=== PATIENT | female | born 1955 | race Caucasian/White ===

== ENCOUNTER 2023-08-29 14:18 | Emergency (ER) | payer MEDICARE, SELFPAY ==
[2023-08-29] VITALS (11 sets, daily range): BP systolic 111–182; BP diastolic 74–110; PULSE 69–95; RESP 16–18; TEMP 36.4; O2SAT 92–97; BMI 23.5
--- NOTE | 2023-08-29 14:21 | ED.GENADULT ---
HPI - General Adult General Time Seen by Provider: 14:21 Date Seen: 08/29/23 Chief complaint: Back Injury/Pain Stated complaint: Back pain Time Seen by Provider: 08/29/23 14:20 Source: patient, family, RN notes reviewed and old records reviewed Mode of arrival: EMS Limitations: no limitations History of Present Illness HPI narrative: 67-year-old female who presents today with back pain. Patient reports history of chronic back pain and spinal stenosis, worse in the last 3 days. No known injury, pain is in low back bilaterally but worse on the right, worse with movement. No radiation into the upper back or chest. Sometimes the pain is bad enough that she gets nauseated. She has some urinary frequency but difficulty voiding, no hematuria, no bowel or bladder incontinence. Related Data Home Medications Medication Instructions Recorded Confirmed [id number]-vezragwulddtr-gputmipi 1 cap PO DAILY PRN 08/29/23 08/29/23 50 mg-300 mg-40 mg capsule (Fioricet) fluoxetine 40 mg capsule 40 mg PO DAILY 08/29/23 08/29/23 levothyroxine 100 mcg capsule 100 mcg PO DAILY 08/29/23 08/29/23 pantoprazole 20 mg tablet,delayed 20 mg PO DAILY 08/29/23 08/29/23 release simvastatin 10 mg tablet 10 mg PO QHS 08/29/23 08/29/23 Previous Rx's Medication Instructions Recorded cyclobenzaprine 10 mg tablet 10 mg PO TID PRN muscle spasm #10 08/29/23 tabs methylprednisolone 4 mg tablets in See Rx Instructions PO .COMPLEX 08/29/23 a dose pack (Medrol (Alfonso)) #21 ea oxycodone 5 mg capsule 5 mg PO Q6H PRN pain #6 caps 08/29/23 Allergies Allergy/AdvReac Type Severity Reaction Status Date / Time penicillin G Allergy Unknown Rash Verified 08/29/23 14:36 ibuprofen AdvReac Severe Bleeding Verified 08/29/23 14:36 Review of Systems Status of ROS: Reports: 10 or more systems reviewed and unremarkable except as noted in History and below PFSH PFSH Social History Smoking Status: Current some day smoker What tobacco products do you use: cigarettes Do you use any of these nicotine containing products: None How often do you have a drink containing alcohol: 2-3 times a week How many standard drinks containing alcohol do you have on a typical day: 1 or 2 AUDIT-C Alcohol total score: 3 Non-prescribed substance use: marijuana (any form) service: No Exam Narrative: Exam Narrative: General: Well-developed and well-nourished, no acute distress Head: Atraumatic and normocephalic Eyes: Pupils are equal reactive, extraocular motions intact, conjunctiva clear ENT: External nose and ears are normal, posterior pharynx without erythema or exudate Neck: No midline cervical tenderness, full spontaneous range of motion the neck, trachea midline, no adenopathy Heart: Regular rate and rhythm no murmurs or thrills Lungs: Clear to auscultation bilaterally without wheezes or crackles Abdomen: Soft, nontender, nondistended with active bowel sounds Musculoskeletal: Bilateral low lumbar tenderness worse on the right Neurologic: Awake, alert, and oriented x3, no gross focal neurologic deficits, cranial nerves intact as tested Psych: Mood and affect are appropriate Skin: No rashes Const: Vital Signs, click to edit/add: Vital Signs - 24 hr 08/29/23 14:36 08/29/23 15:51 08/29/23 16:00 Temperature 97.5 F L Pulse Rate 69 71 Pulse Rate [Pulse Oximeter] 95 Respiratory Rate 18 Blood Pressure Blood Pressure [Ri ght Upper Arm] 159/110 H Pulse Oximetry 97 96 92 Oxygen Delivery Me thod Room Air 08/29/23 16:02 08/29/23 16:03 08/29/23 16:30 Temperature Pulse Rate 72 69 71 Pulse Rate [Pulse Oximeter] Respiratory Rate 16 Blood Pressure 111/94 H Blood Pressure [Ri ght Upper Arm] Pulse Oximetry 93 94 96 Oxygen Delivery Me thod 08/29/23 16:33 08/29/23 17:00 Temperature Pulse Rate 72 73 Pulse Rate [Pulse Oximeter] Respiratory Rate Blood Pressure 148/94 H Blood Pressure [Ri ght Upper Arm] Pulse Oximetry 95 92 Oxygen Delivery Me thod Course Course ED Course: Patient seen and examined, prior records are reviewed. Patient presents today with low back pain worse in the last 3 days, history of chronic back pain. On exam, loss of lumbar lordosis and moves the upper body and block when sitting up. Bilateral low lumbar tenderness with no midline lumbar tenderness, tenderness worse on the right. Straight leg raise negative, strength and sensation of the lower extremities is intact. No abdominal tenderness on exam. Suspect musculoskeletal etiology, however given urinary frequency and nausea with pain, concern for possible kidney stone or urinary tract infection. CT ordered as well as urinalysis and basic panel. Reevaluation(s) Time of Reevaluation #1: 15:50 Reevaluation #1: CT scan of the lumbar spine independently interpreted by me demonstrates some arthritic changes no acute abnormalities. CT scan of the abdomen pelvis and panel interpreted by me does not demonstrate any acute intra-abdominal findings, no hydronephrosis or ureteral stones. Time of Reevaluation #2: 17:36 Reevaluation #2: Labs individual interpreted by me with normal basic panel, urinalysis without evidence for infection. Patient is up and ambulatory after medications and is stable for discharge. Care today influenced by lack of access to primary care, medication noncompliance, and smoking as well as chronic pain. Vital Signs Vital signs: Initial Vital Signs Temperature 97.5 F L 08/29/23 14:36 Temperature Source Temporal Artery Scan 08/29/23 14:36 Pulse Rate 95 08/29/23 14:36 Respiratory Rate 18 08/29/23 14:36 Blood Pressure 159/110 H 08/29/23 14:36 Blood Pressure Mean 126 H 08/29/23 14:36 Blood Pressure Position Semi-Fowlers 08/29/23 14:36 Pulse Oximetry 97 08/29/23 14:36 Oxygen Delivery Method Room Air 08/29/23 14:36 Vital Signs Temperature 97.5 F L 08/29/23 14:36 Pulse Rate 95 08/29/23 14:36 Respiratory Rate 18 08/29/23 14:36 Blood Pressure 159/110 H 08/29/23 14:36 Pulse Oximetry 97 08/29/23 14:36 Oxygen Delivery Method Room Air 08/29/23 14:36 Temperature 97.5 F L 08/29/23 14:36 Pulse Rate 73 08/29/23 17:00 Respiratory Rate 16 08/29/23 16:02 Blood Pressure 148/94 H 08/29/23 16:33 Pulse Oximetry 92 08/29/23 17:00 Oxygen Delivery Method Room Air 08/29/23 14:36 Medical Decision Making Medical Records Medical records reviewed: Yes I reviewed the patient's medical records Lab Data Lab results reviewed: Yes I reviewed the patient's lab results Labs: Lab Results 08/29/23 08/29/23 Range/Units 15:00 17:06 Sodium 137 (135-149) mmol/L Potassium 4.4 (3.6-5.1) mmol/L Chloride 104 (96-114) mmol/L Carbon Dioxide 24 (20-32) mmol/L Anion Gap 9 (7-15) mEq/L BUN 20 (7-30) mg/dL Creatinine 0.8 (0.5-1.5) mg/dL Estimated Creat Clear 51.63 Estimated GFR 80 ml/min Glucose 94 (60-115) mg/dL Calcium 9.3 (8.4-10.6) mg/dL Urine Color Yellow (Yellow) Urine Appearance Clear (Clear) Urine pH 7.0 (5.0-8.5) Ur Specific [place] 1.025 (1.000-1.030) Urine Protein 1+ A (Negative) Urine Glucose (UA) Negative (Negative) Urine Ketones 1+ A (Negative) Urine Blood Negative (Negative) Urine Nitrite Negative (Negative) Urine Bilirubin 1+ A (Negative) Urine Urobilinogen 0.2 (0.2-1.0) Ur Leukocyte Esterase Negative (Negative) Discharge Plan Discharge Clinical Impression: Low back pain Patient Disposition: Home, Self-Care Condition: Stable Instructions: Chronic Back Pain (DC) Additional Instructions: Take medications as needed for back pain. Tylenol or ibuprofen, ice or heat for comfort. Call [facility] [phone] or [facility] [phone] to establish primary care and follow-up Activity Level: Activity as Tolerated Discharge Diet: Regular Prescriptions: New oxycodone 5 mg capsule 5 mg PO Q6H PRN (Reason: pain) Qty: 6 0RF cyclobenzaprine 10 mg tablet 10 mg PO TID PRN (Reason: muscle spasm) Qty: 10 0RF methylprednisolone [Medrol (Alfonso)] 4 mg tablets,dose pack See Rx Instructions .ROUTE .COMPLEX Qty: 21 0RF Rx Instructions: orally per package directions No Action levothyroxine 100 mcg capsule 100 mcg PO DAILY pantoprazole 20 mg tablet,delayed release (DR/EC) 20 mg PO DAILY simvastatin 10 mg tablet 10 mg PO QHS fluoxetine 40 mg capsule 40 mg PO DAILY uvznlpdiro-[id number]-ryqn [Fioricet] 50-300-40 mg capsule 1 cap PO DAILY PRN Follow Up/Referrals: Provider,Not a Local [Primary Care Provider] - Stand Alone Forms: [facility] Info Instructions
--- NOTE | 2023-08-29 14:40 | CRLHL7_ITS ---
For Patients: As a result of the Century Cures Act, medical imaging exams and procedure reports are released immediately into your electronic medical record. You may view this report before your referring provider. If you have questions, please contact your health care provider. Indication: Back pain Technique: Noncontrast axial CT of the lumbar spine with coronal and sagittal reformats. Comparison: No relevant comparison studies available at this institution. Findings: Preserved lumbar lordosis. Trace retrolisthesis at L1-2 and L2-3. Chronic appearing superior endplate deformities at T11 and T12 with superimposed prominent Schmorl`s nodes. No evidence of acute osseous abnormality. No suspicious findings identified within the paraspinal soft tissues. The included SI joints are unremarkable. T12-L1: No significant neural foraminal or spinal canal stenosis. L1-L2: Retrolisthesis, mild facet arthropathy. No significant neural foraminal or spinal canal stenosis. L2-L3: Retrolisthesis, mild facet arthropathy. No significant neural foraminal stenosis. Mild spinal canal narrowing. L3-L4: Diffuse disc bulge, moderate facet arthropathy. No significant neural foraminal stenosis. Mild spinal canal narrowing. L4-L5: Diffuse disc bulge, moderate facet arthropathy. No significant neural foraminal or spinal canal stenosis. L5-S1: Diffuse disc bulge, moderate facet arthropathy. Mild bilateral neuroforaminal narrowing. No spinal canal stenosis. Impression: 1. No evidence of acute osseous abnormality. Chronic superior endplate deformities at T11 and T12 with superimposed Schmorl`s nodes. 2. Mild lumbar spondylosis, with degenerative disc changes, facet arthropathy, and degenerative grade 1 spondylolisthesis as detailed. 3. Mild spinal canal narrowing at L2-3 and L3-4. Mild bilateral neural foraminal narrowing at L5-S1. Please note that all CT scans at this facility use dose modulation, iterative reconstruction, and/or weight-based dosing when appropriate to reduce radiation dose to as low as reasonably achievable. Dictated by Kia Leavitt MD @ 08/29/2023 4:28:05 PM (Electronically Signed)
--- NOTE | 2023-08-29 14:40 | CRLHL7_ITS ---
For Patients: As a result of the Century Cures Act, medical imaging exams and procedure reports are released immediately into your electronic medical record. You may view this report before your referring provider. If you have questions, please contact your health care provider. Indication: Flank pain Technique: Volumetric multidetector CT images of the abdomen and pelvis were without the administration of intravenous contrast. Comparison: None available. Findings: The lung bases are clear. The liver is normal in attenuation without intrahepatic biliary ductal dilatation. The gallbladder is unremarkable without evidence of radiopaque calculus. There is no significant common biliary ductal dilatation or abrupt cut off. The spleen is normal in attenuation and size. The stomach and duodenum are grossly unremarkable. There is demonstration of a small duodenal diverticulum. The pancreas is normal in attenuation without significant atrophy. The adrenal glands are unremarkable. There is no evidence of radiopaque calculus or hydronephrosis. There is moderate stool seen throughout the colon with distal colonic diverticulosis without evidence of diverticulitis. The appendix is unremarkable. There is no significant mesenteric, retroperitoneal, or pelvic sidewall lymph nodes. The aorta is nonaneurysmal. There is no significant atherosclerotic disease appreciated. The solid pelvic viscera are grossly unremarkable. There is no free fluid or free air. The anterior abdominal wall is intact without significant hernias. The lumbar vertebral body heights are grossly maintained with minimal endplate Schmorl`s defects. There is no significant spondylolisthesis or displaced fracture. Moderate degenerative changes with disc height loss and marginal osteophyte formation. Impression: Moderate stool seen throughout the colon. Minimal colonic diverticulosis without evidence of diverticulitis. No evidence of obstructive radiopaque calculus or hydronephrosis. No acute intra-abdominal abnormalities are appreciated. Please note that all CT scans at this facility use dose modulation, iterative reconstruction, and/or weight-based dosing when appropriate to reduce radiation dose to as low as reasonably achievable. Dictated by Jonathon Juarez MD @ 08/29/2023 4:57:30 PM (Electronically Signed)
[2023-08-29] MEDS: KETOROLAC 15 MG/ML inj IVP (15:11)
[2023-08-29] MEDS: dexAMETHasone 10 MG/ML inj IVP (15:11)
[2023-08-29] MEDS: ONDANSETRON 2 MG/ML inj 4 MG IVP (15:11)
[2023-08-29] MEDS: OXYCODONE 5 MG TABLET PO (15:58)
[2023-08-29] MEDS: CYCLOBENZAPRINE HCL 10 MG TABLET PO (15:58)
[2023-08-29 16:24] LABS: Chloride* 104 mmol/L (96-114); Potassium* 4.4 mmol/L (3.6-5.1); Sodium* 137 mmol/L (135-149)
[2023-08-29 16:27] LABS: Anion Gap 9 mEq/L (7-15); Blood Urea Nitrogen* 20 mg/dL (7-30); Calcium* 9.3 mg/dL (8.4-10.6); Carbon Dioxide* 24 mmol/L (20-32); Creatinine* 0.8 mg/dL (0.5-1.5); Est. Creatinine Clearance* 51.63; Estimated Glomerular Filt Rate 80 ml/min; Glucose* 94 mg/dL (60-115)
[2023-08-29 17:24] LABS: Appearance Urine Clear (Clear); Bilirubin Urine 1+ (Negative); Blood Urine Negative (Negative); Color Urine Yellow (Yellow); Glucose Urine Negative (Negative); Ketones Urine 1+ (Negative); Leukocyte Esterase Urine Negative (Negative); Nitrite Urine Negative (Negative); Protein Urine 1+ (Negative); Specific Gravity Urine 1.025 (1.000-1.030); Urobilinogen Urine 0.2 (0.2-1.0)
[2023-08-29 17:56] LABS: Bacteria Urine Moderate; Hyaline Casts Urine Moderate (None-Few); RBC Urine 0-2 (0-2); Squamous Epithelial Cell Urine Moderate (None-Few)
[2023-08-29 17:57] LABS: Mucus Urine Many
== END 2023-08-29 17:57 | disposition home or self-care (01) ==
PROVIDERS: Emergency Provider Family Medicine
DX: M54.50 Low back pain, unspecified (principal)
CPT/HCPCS: 36415; 72131; 74176; 80048; 81001; 87086; 96374; 96375; 99284; 99285; A9270; J1100; J1885; J2405